=== PATIENT | female | born 1995 | race Caucasian/White ===

== ENCOUNTER 2017-09-07 21:50 | Emergency (ER) | payer OTHER ==
[~2017-09-07] VITALS: Ht 160 cm; Wt 66.2 kg
[2017-09-07] MEDS ORDERED: PRENA1 CHEW TA1.4 MG (21:58)
[2017-09-07] MEDS ORDERED: PRENATABS FA T1 EACH (21:59)
[2017-09-07 22:32] VITALS: BP 106/58
== END 2017-09-07 22:33 | disposition home or self-care (01) ==
LOC: M.ERS 21:50
DX: O26.893 Other specified pregnancy related conditions, third trimester (principal); O99.513 Diseases of the respiratory system complicating pregnancy, third trimester; K14.8 Other diseases of tongue; J45.909 Unspecified asthma, uncomplicated; Z3A.32 32 weeks gestation of pregnancy

== ENCOUNTER 2018-10-09 10:35 | Emergency (ER) | payer OTHER ==
[~2018-10-09] VITALS: Ht 162.6 cm; Wt 59.0 kg
[~2018-10-09 10:35] MED LIST: PRENA1 CHEW TA1.4 MG; PRENATABS FA T1 EACH
[2018-10-09 10:55] LABS: URINE BILIRUBIN NEGATIVE (Negative); URINE BLOOD NEGATIVE (Negative); URINE CLARITY CLEAR; URINE COLOR YELLOW; URINE GLUCOSE-RANDOM NEGATIVE (Negative); URINE KETONES NEGATIVE (Negative); URINE LEUKOCYTES-REFLEX 1+ (Negative); URINE NITRITE-REFLEX NEGATIVE (Negative); URINE PROTEIN NEGATIVE (Negative); URINE SPECIFIC GRAVITY 1.015 (1.005-1.030); URINE UROBILINOGEN 0.2 E.U./dl (0.2-1.0)
[2018-10-09 11:04] LABS: BACTERIA-REFLEX 1-9 Few /HPF (None Seen); CASTS None Seen /LPF (None Seen); CRYSTALS None Seen /LPF (None Seen); MUCUS None Seen strn/LPF (None Seen); SQUAMOUS >10 Many /LPF (0-3); URINE RBC 0-2 Rare /HPF (0-2); URINE WBC-REFLEX 0-5 Rare /HPF (0-5)
[2018-10-09 11:23] LABS: ABSOLUTE BASOPHILS 0.1 thou/uL (0.0-0.2); ABSOLUTE EOSINOPHILS 0.4 thou/uL (0.0-0.7); ABSOLUTE LYMPHOCYTES 2.1 thou/uL (0.8-5.3); ABSOLUTE MONOCYTES 0.3 thou/uL (0.0-1.2); ABSOLUTE NEUTROPHILS 3.5 thou/uL (1.6-8.1); BASOPHILS 1.1 %; EOSINOPHILS 5.5 %; HEMATOCRIT 43.6 % (37.0-47.0); HEMOGLOBIN 14.4 gm/dL (12.0-15.0); LYMPHOCYTES 33.5 %; MCHC 33.1 g/dL (28.0-37.0); MCV 87.6 fL (80.0-100.0); MONOCYTES 5.1 %; MPV 8.4 fl. (7.2-11.1); NUCLEATED RBCS 0 /100WBC; PLATELET COUNT* 305 thou/uL (150-400); POLYS 54.8 %; RBC 4.97 mil/uL (4.20-5.00); WBC 6.4 thou/uL (4.0-11.0)
[2018-10-09 11:41] LABS: ALBUMIN 3.9 g/dL (3.4-5.0); CALCIUM 8.6 mg/dL (8.5-10.1); CREATININE 0.6 mg/dL (0.6-1.3); POTASSIUM 4.3 mmol/L (3.5-5.1); TOTAL BILIRUBIN 0.6 mg/dL (<0.1-1.0); TOTAL PROTEIN 7.5 g/dL (6.4-8.2)
[2018-10-09] MEDS ORDERED: FLAGYL500 M1 PO ×2 (11:42→11:55)
[2018-10-09] MEDS ORDERED: ZITHROMAX500 MG PO (11:42)
[2018-10-09 12:15] VITALS: BP 120/73
== END 2018-10-09 12:16 | disposition home or self-care (01) ==
LOC: M.ERS 10:35
PROVIDERS: Nurse Practitioner Family
DX: N72 Inflammatory disease of cervix uteri (principal); J45.909 Unspecified asthma, uncomplicated

== ENCOUNTER 2019-03-28 17:53 | Emergency (ER) | payer OTHER ==
[~2019-03-28] VITALS: Ht 162.6 cm; Wt 59.0 kg
[~2019-03-28 17:53] MED LIST changes: +FLAGYL500 M1 PO; +ZITHROMAX500 MG PO
[2019-03-28 18:03] VITALS: BP 132/83
== END 2019-03-28 19:18 | disposition home or self-care (01) ==
LOC: M.ERS 17:53
DX: Z32.02 Encounter for pregnancy test, result negative (principal); J45.909 Unspecified asthma, uncomplicated

== ENCOUNTER 2020-08-26 18:08 | Emergency (ER) | payer OTHER ==
[~2020-08-26] VITALS: Ht 160 cm; Wt 61.2 kg
[2020-08-26 18:30] LABS: URINE BILIRUBIN NEGATIVE (Negative); URINE BLOOD NEGATIVE (Negative); URINE CLARITY CLEAR; URINE COLOR YELLOW; URINE GLUCOSE-RANDOM NEGATIVE (Negative); URINE KETONES NEGATIVE (Negative); URINE LEUKOCYTES-REFLEX 1+ (Negative); URINE NITRITE-REFLEX NEGATIVE (Negative); URINE PROTEIN NEGATIVE (Negative); URINE SPECIFIC GRAVITY 1.025 (1.005-1.030); URINE UROBILINOGEN 0.2 E.U./dl (0.2-1.0)
[2020-08-26 18:38] LABS: CASTS None Seen /LPF (None Seen); CRYSTALS None Seen /LPF (None Seen); MUCUS 4-6 Moderate strn/LPF (None Seen); SQUAMOUS >10 Many /LPF (0-3); URINE WBC-REFLEX 0-5 Rare /HPF (0-5)
[2020-08-26 18:39] LABS: BACTERIA-REFLEX 1-9 Few /HPF (None Seen)
[2020-08-26 18:40] LABS: URINE RBC None Seen /HPF (0-2)
[2020-08-26 19:14] VITALS: BP 148/61
== END 2020-08-26 19:14 | disposition home or self-care (01) ==
LOC: M.ERS 18:08
PROVIDERS: Nurse Practitioner Family
DX: Z20.2 Contact with and (suspected) exposure to infections with a predominantly sexual mode of transmission (principal); Z32.02 Encounter for pregnancy test, result negative; J45.909 Unspecified asthma, uncomplicated